=== PATIENT | male | born 1990 | race Asian ===

== ENCOUNTER 2019-03-04 05:23 | Emergency (ER) | payer OTHER ==
[~2019-03-04] VITALS: Ht 175.3 cm; Wt 79.4 kg
[2019-03-04] MEDS ORDERED: KETOROLAC 15 MG/ML VIAL. IVP ONE (05:45)
[2019-03-04] MEDS ORDERED: ONDANSETRON PF 4 MG/2 ML VIAL. IVP ONE (05:45)
[2019-03-04] MEDS ORDERED: IV NORMAL SALINE 1,000ML 1,000 ML IV ONE (05:45)
[2019-03-04] MEDS ORDERED: FAMOTIDINE 20 MG/2 ML VIAL IVP ONE (05:45)
--- NOTE | 2019-03-04 05:47 | PHYS DOC ---
Past History Past Medical History: No Pertinent History (CLEVELAND HURST DO) Past Surgical History: No Surgical History (CLEVELAND HURST DO) Smoking: Non-smoker Alcohol Use: Occasionally Drug Use: None (CLEVELAND HURST DO) Adult General Chief Complaint Chief Complaint: ABDOMINAL PAIN HPI HPI 28-year-old male presents with sudden sharp epigastric abdominal pain which started at 0200. Patient denies fever or chills. Denies known trauma. Denies nausea or vomiting. Patient reports he ate chicken wings at approximately 2100 last night. Patient denies taking any medication for pain or discomfort prior to arrival. Denies known sick contacts. Denies prior abdominal surgeries. (CLEVELAND HURST DO) Review of Systems Review of Systems Constitutional: Denies fever or chills Eyes: Denies redness or eye pain HENT: Denies nasal congestion or sore throat Respiratory: Denies cough or shortness of breath Cardiovascular: Denies chest pain or palpitations GI: Reports epigastric abdominal pain; denies nausea or vomiting : Denies dysuria or hematuria Musculoskeletal: Denies back pain or joint pain Integument: Denies rash or skin lesions Neurologic: Denies headache, focal weakness or sensory changes Complete systems were reviewed and found to be within normal limits, except as documented in this note. (CLEVELAND HURST DO) Physical Exam Physical Exam Constitutional: Well developed, well nourished, uncomfortable, non-toxic appearance HENT: Normocephalic, atraumatic, oropharynx moist Eyes: Conjunctiva normal, no discharge Neck: Normal range of motion, no tenderness, supple Cardiovascular: Heart rate normal, regular rhythm Lungs & Thorax: Bilateral breath sounds clear to auscultation, no wheezing Abdomen: Soft, epigastric and RUQ tenderness on palpation, no guarding/rebound tenderness/distention Skin: Warm, dry, no erythema, no rash Back: No tenderness, no CVA tenderness Extremities: No tenderness, ROM intact, no edema Neurologic: Alert and oriented X 3, no focal deficits noted Psychologic: Affect normal, judgement normal (CLEVELAND HURST DO) Current Patient Data Vital Signs Vital Signs Date Time Temp Pulse Resp B/P (MAP) Pulse Ox O2 Delivery O2 Flow Rate FiO2 03/04/19 05:25 98.1 84 18 99 Room Air (CLEVELAND HURST DO) EKG EKG [] (CLEVELAND HURST DO) Radiology/Procedures Radiology/Procedures [] (CLEVELAND HURST DO) Radiology/Procedures PROCEDURE: ABDOMEN LTD Examination: Ultrasound abdomen limited History: right upper quadrant pain COMPARISON: None available FINDINGS: The liver length measures 15.7 cm. The common bile duct measures 3.8 mm in diameter. No evidence of gallstones. The right kidney is 10.7 cm in length. The pancreas is not well-visualized. The visualized IVC is within normal limits of dimension. IMPRESSION: 1. No evidence of gallstones. (LLOYD JEFFERS DO) Course & Med Decision Making Course & Med Decision Making Pertinent Labs and Imaging studies reviewed. (See chart for details) Patient presents with sudden sharp epigastric abdominal pain which started this morning at 0200. Tenderness noted to right upper quadrant and epigastric regions. Symptomatically treatment provided. IV fluid hydration given. Labs obtained and pending. Ultrasound pending for rule out acute cholecystitis. Sign out given to Dr. Jeffers for further evaluation and final disposition. Discussed current findings and plan with patient, who acknowledges understanding and agreement. (CLEVELAND HURST DO) Course & Med Decision Making Dr. Jeffers's note: Received patient at 6 AM. Agree with previous H&P. In addition to the previously noted history, patient recently returned from visiting family in [place], [place], where he had been drinking significantly more alcohol than usual. A 6 pack or more a day for a week or so. Reports that the pain is boring through his upper abdomen. Nothing seems to make it better or worse. 0730 patient has been to and from radiology with any complications. He reports his pain is doing much better, and that he has no pain at this time. Medical decision making: There is no evidence of pancreatitis, obstruction, perforation, nor significant electrolyte abnormality, nor acute surgical pathology. Believe this to be more of a gastritis presentation. (LLOYD JEFFERS DO) Dragon Disclaimer Dragon Disclaimer This electronic medical record was generated, in whole or in part, using a voice recognition dictation system. (CLEVELAND HURST DO) Departure Departure: Impression: Primary Impression: Epigastric abdominal pain Disposition: HOME, SELF-CARE Condition: IMPROVED Referrals: PCP,NO (PCP) Patient Instructions: Abdominal Pain, Gastritis, Adult Additional Instructions: Follow-up with your regular doctor in 2 days. Take the medication as prescribed. If you do drink alcohol, drink only in moderation, 1-2 drinks per day. Return to the ER if worsening pain, unable to tolerate liquids, or any other concerns. Scripts Famotidine (PEPCID) 20 Mg Tablet 1 TAB PO BID for gastritis, #20 TAB 0 Refills Prov: LLOYD JEFFERS DO 03/04/19 Hyoscyamine Sulfate (LEVSIN) 0.125 Mg Tablet 0.125 MG PO QID for abdominal pain/cramping, #30 TAB Prov: LLOYD JEFFERS DO 03/04/19 CLEVELAND HURST DO Mar 04, 2019 05:47 LLOYD JEFFERS DO Mar 04, 2019 07:07
[2019-03-04] MEDS ORDERED: HYOSCYAMINE 0.125 MG TAB.RAPDIS PO ONE (06:15)
[2019-03-04 06:34] LABS: BASO % 0 % (0-3); EOS # 0.1 x10^3/uL (0.0-0.7); EOS % 1 % (0-3); HEMOGLOBIN 15.6 g/dL (13.0-17.5); LYMPH % 20 % (24-48); MEAN CORPUSCULAR HEMOGLOBIN 31 pg (25-35); MEAN CORPUSCULAR HGB CONC 34 g/dL (31-37); MEAN CORPUSCULAR VOLUME 90 fL (79-100); MONO # 0.7 x10^3/uL (0.0-1.1); MONO % 7 % (0-9); NEUT # 7.2 x10^3uL (1.8-7.7); NEUT % 72 % (31-73); PLATELET COUNT 185 x10^3/uL (140-400); RED BLOOD COUNT 5.11 x10^6/uL (4.30-5.70); RED CELL DISTRIBUTION WIDTH 12.2 % (11.5-14.5)
[2019-03-04 06:51] LABS: ALBUMIN 3.8 g/dL (3.4-5.0); CREATININE 1.1 mg/dL (0.7-1.3); GFR 80.9; TOTAL BILIRUBIN 0.5 mg/dL (0.2-1.0); TOTAL PROTEIN 7.5 g/dL (6.4-8.2)
--- NOTE | 2019-03-04 06:53 | RAD ---
Examination: Ultrasound abdomen limited History: right upper quadrant pain COMPARISON: None available FINDINGS: The liver length measures 15.7 cm. The common bile duct measures 3.8 mm in diameter. No evidence of gallstones. The right kidney is 10.7 cm in length. The pancreas is not well-visualized. The visualized IVC is within normal limits of dimension. IMPRESSION: 1. No evidence of gallstones. Electronically signed by: Colton Aguila MD (03/04/2019 6:50 AM) [id number]
[2019-03-04 07:35] VITALS: BP 112/59
[2019-03-04] MEDS ORDERED: HYOS0.1264 PO (07:41)
[2019-03-04] MEDS ORDERED: FAMO-63 PO (07:41)
[2019-03-04 07:51] LABS: BACTERIA,URINE 0 /HPF (0-FEW); BILIRUBIN,URINE NEG (NEG); CLARITY,URINE CLEAR; COLOR,URINE YELLOW; GLUCOSE,URINE NEG (NEG); NITRITE,URINE NEG (NEG); RBC,URINE 0 /HPF (0-2); SQUAMOUS EPITHELIAL CELL,UR OCC /LPF; UROBILINOGEN,URINE 0.2 mg/dL (0.2 mg/dL); WBC,URINE 0 /HPF (0-4)
== END 2019-03-04 08:12 | disposition home or self-care (01) ==
LOC: ER 05:23
DX: R10.13 Epigastric pain (principal)
CPT/HCPCS: 36415; 76705; 80053; 81001; 83690; 83735; 85025; 96374; 96375; 99285; J1885; J2405; J3490; J7030